=== PATIENT | male | born 1950 | race Caucasian/White ===

== ENCOUNTER 2021-03-05 07:22 | Emergency (ER) | payer MEDICARE, OTHER ==
[2021-03-05] MEDS ORDERED: Lidocaine 1% 30 ML SDV INJECT ONE (08:00)
[2021-03-05] MEDS ORDERED: Bacitracin Oint 1 GM U/D Packet TOP ONE (08:00)
--- NOTE | 2021-03-05 08:03 | EDM.PDOC ---
ED HPI GENERAL MEDICAL PROBLEM - General Stated Complaint: [id number] LACERATION ON HEAD Time Seen by Provider: 03/05/21 07:57 Source of Information: Reports: Patient, RN, RN Notes Reviewed History Limitations: Reports: No Limitations - History of Present Illness INITIAL COMMENTS - FREE TEXT/NARRATIVE: Vannessa is a 70 y/o male who presents to the ED via personal vehicle with complaints of laceration to his forehead. The patient reports he sustained the injury approximately 20 minutes prior to his arrival to this facility while [place] slippery dock. The patient states he tripped and fell forward onto his forehead, resulting in the aforementioned laceration. He denies loss of consciousness and remembers the event in entirety; he does take aspirin daily. He denies headache, vision chances, projectile vomiting, or lethargy. He denies neck pain. He has taken no medications for his symptoms. Trauma Notes: As above in HPI Arrival Time: 07 C-Collar Status: Not placed by ED staff due to negative NEXUS criteria Spinal Board/Immobilization Status: Not placed by ED staff as patient is ambulatory GCS on Arrival: 15 Primary Trauma Survey Airway: Patent nasal and oral airways. Conversant with normal speech. No evidence of airway obstruction. Breathing: Spontaneous respirations, symmetric chest rise and fall, non-labored breathing. Circulation: No central, peripheral, or perioral cyanosis. Heart rate and rhythm regular. No murmur or gallop. Intact distal pulses and capillary refill x4 distal extremities. Deformity/Disability: Head normal cephalic. 6cm laceration to midline forehead with active bleeding noted. No cervical-point tenderness or cervical pain with lateral rotation of neck. Chest non-tender. Abdomen soft, non-tender, benign to exam. Pelvis stable. Bilateral upper and lower extremities non-tender, atraumatic. No long bone deformities. No acute motor or sensory deficits. CN II-XII intact. GCS 15 on arrival. Exposure: 6cm laceration to midline forehead with active bleeding noted. Skin warm and dry. - Related Data Allergies Allergy/AdvReac Type Severity Reaction Status Date / Time No Known Allergies Allergy Verified 03/05/21 08:10 ED ROS GENERAL - Review of Systems Review Of Systems: Comprehensive ROS is negative, except as noted in HPI. ED EXAM, HEAD INJURY - Physical Exam Exam: See Below Text/Narrative:: Secondary Trauma survey as follows (0800) Exam Limited By: No Limitations General Appearance: Alert, No Apparent Distress Head: Normocephalic, Scalp Lacerations (6cm to midline anterior scalp, extending into hairline), Scalp Swelling (To midline anterior forehead, extending into hairline), Scalp Hematoma (To midline anterior forehead, extending into hairline), Scalp Tenderness (To midline anterior forehead, extending into hairline), Active Bleeding. No: Scalp Abrasions, Scalp Ecchymosis, Scherer's Sign, Raccoon Eyes Nexus Criteria: No: Posterior, Midline Cervical Tenderness, Evidence of Intoxication, Altered Level of Consciousness, Focal Neurological Deficit, Painful Distraction Injuries Eyes: Bilateral Eye: EOMI, Normal Inspection, PERRL (3mm) Ears: Normal External Exam, Normal Canal, Hearing Grossly Normal, Normal TMs Nose: Normal Inspection, Normal Mucousa, No Blood Throat/Mouth: Normal Inspection, Normal Lips, Normal Teeth, Normal Gums, Normal Oropharynx, Normal Voice, No Airway Compromise Neck: Non-Tender, Full Range of Motion, Normal Alignment, Normal Inspection, Other (C-Collar not placed as c-spine cleared via physical exam). No: Painful Range of Motion, Paraspinous Muscle Tender, Spinous Processes Tender, Stiff Neck Respiratory: No Respiratory Distress, Lungs Clear, Normal Breath Sounds, No Accessory Muscle Use, Chest Non-Tender Cardiovascular: Normal Peripheral Pulses, Regular Rate, Rhythm, No Edema, No Gallop, No JVD, No Murmur, No Rub GI/Abdominal Exam: Normal Bowel Sounds, Soft, Non-Tender, No Organomegaly, No Distention, No Abnormal Bruit, No Mass, Pelvis Stable (Male) Exam: Deferred Rectal (Males) Exam: Deferred Back Exam: Normal Inspection, Full Range of Motion Extremities: Normal Inspection, Normal Range of Motion, Non-Tender, No Pedal Edema, Normal Capillary Refill Neurologic: stitcher around II-XII nml As Tested, No Motor/Sensory Deficits, Alert, Normal Mood/Affect, Oriented x 3. No: Facial Droop Skin: Normal Color - Tae Coma Score Best Eye Response ([place]): (4) Open Spontaneously Best Verbal Response (Tae): (5) Oriented Best Motor Response (Tae): (6) Obeys Commands ED LACERATION/WOUND & ARASH PROC - Laceration/Wound Repair Upper Mid-Anterior Medial Forehead Lac/wound length in cm: 6 Appearance: Superficial, Subcutaneous, Linear, Clean Distal NVT: Neuro & Vascular Intact, No Tendon Injury Anesthetic Type: Local Local Anesthesia - Lidocaine (Xylocaine): 1% Plain Local Anesthetic Volume: Other (15) Skin Prep: Chlorhexidine (Hibiciens), Saline, Sterile Drape Exploration/Debridement/Repair: Wound Explored, In a Bloodless Field, Explored to Base, No Foreign Material Found, Wound Margins Revised Closed with: Sutures Suture Size: 4-0 # of Sutures: 13 Suture Type: Prolene Drain Placement: No Sterile Dressing Applied: Nurse Tetanus Status Addressed: Yes Complications: No Course - Orders/Labs/Meds Meds: Medications Discontinued Medications Generic Name Dose Route Start Last Admin Trade Name Patricia PRN Reason Stop Dose Admin Bacitracin 1 dose 03/05/21 08:00 03/05/21 08:08 Bacitracin Oint 1 Gm U/D Packet TOP 03/05/21 08:01 1 dose ONETIME ONE Administration Diphtheria/Tetanus/Acell Pertussis 0.5 ml 03/05/21 08:05 03/05/21 08:15 Diphtheria,Pertussis(Acell),Tetanus Vaccine 0.5 Ml Syringe IM 03/05/21 08:06 0.5 ml .ONCE ONE Administration Lidocaine HCl 30 ml 03/05/21 08:00 03/05/21 08:08 Lidocaine 1% 30 Ml Sdv INJECT 03/05/21 08:01 30 ml ONETIME ONE Administration - Radiology Interpretation Free Text/Narrative:: [facility] [place] [facility] Final Radiology Report Call: [phone] assistance Online chat: [email or web address] Name: VANNESSA MALIK Age: 70Years M Date: 03/05/2021 SSN: -- : [id number] Study: CT HEAD WO CONT Requesting Physician: Heather Blanchard Images: 146 Addl Studies: Provided Clinical History: Fall onto head; Daily blood thinner Contrast: Without Contrast Medium: Contrast Amount: Contrast Method: Page 1 of 2 PROCEDURE INFORMATION: Exam: CT Head Without Contrast Exam date and time: 03/05/2021 7:55 AM Age: 70 years old Clinical indication: Injury or trauma; Fall; Blunt trauma (contusions or hematomas); Without loss of consciousness; Additional info: Fall onto head; Daily blood thinner TECHNIQUE: Imaging protocol: Computed tomography of the head without contrast. Radiation optimization: All CT scans at this facility use at least one of these dose optimization techniques: automated exposure control; mA and/or kV adjustment per patient size (includes targeted exams where dose is matched to clinical indication); or iterative reconstruction. COMPARISON: No relevant prior studies available. FINDINGS: Brain: No acute intracerebral abnormality or injury. No acute infarct or intracerebral bleed. Mild ageappropriate cerebral atrophy with minimal patchy periventricular leukomalacia in both cerebral hemispheres, consistent most likely with chronic underlying small vessel / microvascular ischemic disease. [place] Stroke Program Early CT Score (ASPECTS score) = 10. Cerebral ventricles: No ventriculomegaly. Paranasal sinuses: Visualized sinuses are unremarkable. No fluid levels. Mastoid air cells: Visualized mastoid air cells are well aerated. Bones/joints: See "Soft tissues" finding. Soft tissues: Mild soft tissue swelling and subcutaneous contusion is seen in the left paramedian frontal supraorbital scalp on images 20 through 22 of series 2. No underlying calvarial or orbital fractures however. IMPRESSION: 1. Mild soft tissue swelling and subcutaneous contusion is seen in the left paramedian frontal supraorbital scalp on images 20 through 22 of series 2. No underlying calvarial or orbital fractures however. 2. No acute intracerebral abnormality or injury. No acute infarct or intracerebral bleed. 3. Mild age-appropriate cerebral atrophy with minimal patchy periventricular leukomalacia in both cerebral hemispheres, consistent most likely with chronic underlying small vessel / microvascular ischemic disease. 4. [place] Stroke Program Early CT Score (ASPECTS score) = 10. Thank you for allowing us to participate in the care of your patient. Dictated and Authenticated by: Drake Pineda MD 03/05/2021 8:09 AM Central Time ([place] & [place]) - Re-Assessments/Exams Free Text/Narrative Re-Assessment/Exam: 03/05/21 CT head negative for intracranial bleed. GCS at one hour (0857): 15 Laceration to forehead sutured without complication. Boostrix administered. Findings of examination and imaging reviewed with patient and . Discussed supportive cares for wounds as well as red flag signs and symptoms which would warrant reevaluation reviewed. Patient verbalized understanding and agreement with the plan of care. GCS at discharge (0915): 15 Departure - Departure Time of Disposition: 09:10 Disposition: Home, Self-Care 01 Condition: Good Clinical Impression: History of anticoagulant therapy, Fall from ground level, Concussion without loss of consciousness, initial encounter Laceration of forehead without complication Qualifiers: Encounter type: initial encounter Qualified Code(s): S01.81XA - Laceration without foreign body of other part of head, initial encounter - Discharge Information *PRESCRIPTION DRUG MONITORING PROGRAM REVIEWED*: Not Applicable *COPY OF PRESCRIPTION DRUG MONITORING REPORT IN PATIENT SHABBIR: Not Applicable Instructions: Head Injury, Adult, [id number], Laceration Care, Adult, [id number] Referrals: PCP,Not In Area [Primary Care Provider] - Forms: ED Department Discharge Additional Instructions: 1.) Follow up at any primary care facility for suture removal in seven days. 2.) Keep sutures clean and dry, no need to cover with a bandage unless draining. 3.) You may apply bacitracin to the area twice a day. 4.) Monitor for redness, increasing pain, or white/crocker drainage to wound which would require a follow up to your primary care facility. 5.) Monitor for pupillary changes, projectile vomiting, seizure-like activity, or increased sleepiness which would require a follow up to an emergency department.
[2021-03-05] MEDS ORDERED: Diphtheria,Pertussis(Acell),Tetanus Vaccine 0.5 ML Syringe IM ONE (08:05)
--- NOTE | 2021-03-05 08:09 | CT ---
PROCEDURE INFORMATION: Exam: CT Head Without Contrast Exam date and time: 03/05/2021 7:55 AM Age: 70 years old Clinical indication: Injury or trauma; Fall; Blunt trauma (contusions or hematomas); Without loss of consciousness; Additional info: Fall onto head; Daily blood thinner TECHNIQUE: Imaging protocol: Computed tomography of the head without contrast. Radiation optimization: All CT scans at this facility use at least one of these dose optimization techniques: automated exposure control; mA and/or kV adjustment per patient size (includes targeted exams where dose is matched to clinical indication); or iterative reconstruction. COMPARISON: No relevant prior studies available. FINDINGS: Brain: No acute intracerebral abnormality or injury. No acute infarct or intracerebral bleed. Mild age-appropriate cerebral atrophy with minimal patchy periventricular leukomalacia in both cerebral hemispheres, consistent most likely with chronic underlying small vessel / microvascular ischemic disease. [place] Stroke Program Early CT Score (ASPECTS score) = 10. Cerebral ventricles: No ventriculomegaly. Paranasal sinuses: Visualized sinuses are unremarkable. No fluid levels. Mastoid air cells: Visualized mastoid air cells are well aerated. Bones/joints: See "Soft tissues" finding. Soft tissues: Mild soft tissue swelling and subcutaneous contusion is seen in the left paramedian frontal supraorbital scalp on images 20 through 22 of series 2. No underlying calvarial or orbital fractures however. IMPRESSION: 1. Mild soft tissue swelling and subcutaneous contusion is seen in the left paramedian frontal supraorbital scalp on images 20 through 22 of series 2. No underlying calvarial or orbital fractures however. 2. No acute intracerebral abnormality or injury. No acute infarct or intracerebral bleed. 3. Mild age-appropriate cerebral atrophy with minimal patchy periventricular leukomalacia in both cerebral hemispheres, consistent most likely with chronic underlying small vessel / microvascular ischemic disease. 4. [place] Stroke Program Early CT Score (ASPECTS score) = 10.
== END 2021-03-05 09:19 | disposition home or self-care (01) ==
LOC: DL.ED 07:22
DX: S06.0X0A Concussion without loss of consciousness, initial encounter (principal); S01.81XA Laceration without foreign body of other part of head, initial encounter; Z23 Encounter for immunization; Z79.82 Long term (current) use of aspirin; Z79.01 Long term (current) use of anticoagulants; W01.198A Fall on same level from slipping, tripping and stumbling with subsequent striking against other object, initial encounter; Y93.01 Activity, walking, marching and hiking; Y92.89 Other specified places as the place of occurrence of the external cause
CPT/HCPCS: 12014; 70450; 90471; 90715; 99283-25; 99284